=== PATIENT | male | born 1990 | race Caucasian/White ===

== ENCOUNTER 2019-11-09 04:57 | Observation (INO) | payer OTHER ==
[~2019-11-09] VITALS: Ht 178 cm; Wt 80.0 kg
[2019-11-09 05:04] VITALS: BP 146/78
[2019-11-09 05:59] LABS: ALBUMIN 5.5 gm/dl (3.1-4.5); BASO % 0.1 % (0.0-1.0); CREATININE 3.3 mg/dL (0.70-1.30); HEMATOCRIT 48.6 % (42.0-52.0); LYMPH # 1.6 10*3/uL (1.3-4.4); LYMPH % 10.7 % (27.0-41.0); MEAN CELL VOLUME 84.1 fl (80.0-94.0); MEAN CORPUSCULAR HGB 29.2 pg (27.0-31.0); MEAN CORPUSCULAR HGB CONC 34.8 g/dl (33.0-37.0); MONO # 1.3 10*3/uL (0.1-1.0); MONO % 8.6 % (3.0-9.0); NEUT # 11.7 10*3/uL (2.3-7.9); NEUT % 80.1 % (47.0-73.0); PLATELET COUNT AUTOMATED 287 10*3/uL (130-400); RED BLOOD COUNT 5.78 10*6/uL (4.50-5.90); RED CELL DISTRI WIDTH 12.3 % (0-14.5); TOTAL PROTEIN 8.7 gm/dL (6.4-8.2); WHITE BLOOD COUNT 14.6 10*3/uL (4.8-10.8)
[2019-11-09 06:01] LABS: POTASSIUM 4.4 mmol/L (3.5-5.1)
[2019-11-09 07:55] VITALS: BP 146/67
--- NOTE | 2019-11-09 07:55 | NUR ---
Time: 754 A 28 year old MALE admitted to under services of LIA WILLIS DO, Pt. arrived via ambulaTORY from ER. Chief complaint: NAUSEA, VOMITING. CORY REDDY
[2019-11-09 12:00] VITALS: BP 110/54
--- NOTE | 2019-11-09 13:00 | NUR ---
ZOFRAN GIVEN FOR C/O NAUSEA. WILL MONITOR.
--- NOTE | 2019-11-09 14:50 | NUR ---
PT STATES HE IS STILL HAVE NAUSEA AND ABDOMINAL PAIN. BATOOL NOTIFIED.
--- NOTE | 2019-11-09 14:59 | NUR ---
ONE TIME ORDER OF PHENERGAN ADMININSTERED AT THIS TIME. WILL MONITOR FOR EFFECTIVENESS.
--- NOTE | 2019-11-09 15:45 | NUR ---
PT IS ASLEEP. PHENERGAN CONSIDERED EFFECTIVE.
[2019-11-09 16:00] VITALS: BP 128/66
--- NOTE | 2019-11-09 19:19 | NUR ---
RECIEVED REPORT FROM PREVIOUS RN.
[2019-11-09 20:00] VITALS: BP 129/49
--- NOTE | 2019-11-09 20:01 | NUR ---
ASSUMED CARE OF PATIENT. PATIENT IS AAOX3 RESTING IN BED WITH EASY AND REGULAR RESPERS ON ROOM AIR. ASSESSMENT IS COMPLETE WITH NO C/O OR S/S OF DISTRESS NOTED AT THIS TIME. BED IS LOW, LOCKED, AND CALL LIGHT IS WITHIN REACH. WILL CONTNINUE TO MONITOR, SEE INTERVENTIONS.
[2019-11-09 22:13] LABS: BILIRUBIN Negative (Negative); BLOOD Negative (Negative); CLARITY Clear (Clear); COLOR Yellow (Yellow); GLUCOSE Negative (Negative); KETONE Trace (Negative); LEUKO ESTERASE Negative (Negative); NITRITE Negative (Negative); PH 5.5 (4.5-8.0); SPECIFIC GRAVITY >= 1.030 (1.001-1.030)
[2019-11-09 23:08] LABS: HYALINE CAST 31-40; WBC 0-2 wbc/hpf (0-5)
[2019-11-10 06:19] LABS: CHLORIDE 111 mmol/L (98-107); CREATININE 1.05 mg/dL (0.70-1.30); SODIUM 139 mmol/L (136-145)
[2019-11-10 06:39] LABS: BASO % 0.2 % (0.0-1.0); HEMATOCRIT 40.6 % (42.0-52.0); LYMPH # 1.7 10*3/uL (1.3-4.4); LYMPH % 14.3 % (27.0-41.0); MEAN CELL VOLUME 86.6 fl (80.0-94.0); MEAN CORPUSCULAR HGB 29.4 pg (27.0-31.0); MONO # 1.2 10*3/uL (0.1-1.0); MONO % 10.2 % (3.0-9.0); NEUT # 8.7 10*3/uL (2.3-7.9); NEUT % 74.9 % (47.0-73.0); RED BLOOD COUNT 4.69 10*6/uL (4.50-5.90); RED CELL DISTRI WIDTH 12.4 % (0-14.5); WHITE BLOOD COUNT 11.6 10*3/uL (4.8-10.8)
[2019-11-10 06:40] LABS: BUN 23 mg/dl (7-24); PLATELET COUNT AUTOMATED 188 10*3/uL (130-400)
[2019-11-10 08:00] VITALS: BP 97/58
--- NOTE | 2019-11-10 08:10 | NUR ---
PT RESTING IN BED. RESP-EASY AND REGULAR. NO C/O AT THIS TIME. CALL LIGHT IN REACH. SEE SHIFT ASSESSMENT.
--- NOTE | 2019-11-10 09:56 | NUR ---
PT C/O NAUSEA, MEDICATED WITH ZOFRAN IV PER PRN ORDER, SEE EMAR. CALL LIGHT IN REACH.
--- NOTE | 2019-11-10 10:46 | NUR ---
Credit Officer in to talk to patient. Patient states lives at HOME with ALONE. There are NO steps in the home. Physician: NONE Pharmacy: [facility] Home health services: NONE Patient's level of ADLs: INDEPENDENT Patient has working utilities: YES DME: NONE Follow-up physician's appointment after d/c: PREFERS TO FIND OWN AND MAKE APPOINTMENT Does patient want to access PORTAL?: NO Discharge plan PT IS IN THE AREA FROM OUT OF TOWN WORKING. STATES HE LIVES ALONE AND IS INDEPENDENT IN HIS CARE. DENIES HE WILL HAVE ANY NEEDS ON DISCHARGE. PLAN IS TO RETURN HOME WHEN MEDICALLY STABLE. STATES HE WILL HAVE A RIDE HOME. WILL CONTINUE TO FOLLOW.. MADELINE KWON
--- NOTE | 2019-11-10 10:50 | NUR ---
PT HAD SHOWER RESTING BACK IN BED. STATES MEDICATION HELPS. CALL LIGHT IN REACH.
--- NOTE | 2019-11-10 11:24 | NUR ---
DR. LIU WAS INTO SEE PT. C/O NAUSEA, MEDICATED WITH PHENERGAN PER STRAIGHT ORDER, SEE EMAR. CALL LIGHT IN REACH.
--- NOTE | 2019-11-10 12:20 | NUR ---
PT LYING IN BED WITH EYES CLOSED. RESP-EASY AND REGULAR. MEDICATION SEEMS TO BE EFFECTIVE. CALL LIGHT IN REACH.
[2019-11-10 16:00] VITALS: BP 122/70
--- NOTE | 2019-11-10 19:20 | NUR ---
REPORT OBTAINED FROM PREVIOUS RN. ASSUMED CARE OF PATIENT.
--- NOTE | 2019-11-10 19:45 | NUR ---
PATIENT RESTING IN BED. RESPERS EASY AND REGULAR ON ROOM AIR. ASSESSMENT IS COMPLETE. BED IS LOW, LOCKED, AND CALL LIGHT IS WITHIN REACH. NORMAL SALINE INFUSING PER ORDER. PATIENT INQUIRING ABOUT SHOWER. SHOWER ROOM SET UP. WALLET, WATCH, CAR KEYS, AND CELL PHONE PLACED IN WALL-A-CHERELLE WITH LOCK. WILL CONTINUE TO MONITOR, SEE INTERVENTIONS.
[2019-11-10 20:00] VITALS: BP 109/55; BP 178/98
--- NOTE | 2019-11-10 22:00 | NUR ---
PATIENT SHOWERED AND BED LINENS CHANGED.
--- NOTE | 2019-11-10 22:19 | NUR ---
IV started left forearm with #22 angiocath. The IV site was prepped with Chloraprep. Heparin lock attached. IV solution 0.9NS infusing at 100mL/hr Sterile dressing applied. Patient tolerated precedure well. Procedure performed according to [facility] policy & procedure. CHUY JARAMILLO
--- NOTE | 2019-11-10 23:23 | NUR ---
CHART CHECK COMPLETE.
[2019-11-11] VITALS: BP 126/68
--- NOTE | 2019-11-11 04:25 | NUR ---
SLEEPING. RESPERS EASY AND REGULAR. CALL LIGHT IS WITHIN REACH.
[2019-11-11 06:06] LABS: BASO % 0.4 % (0.0-1.0); EOS % 0.2 % (1.0-4.0); HEMATOCRIT 39.3 % (42.0-52.0); LYMPH # 1.9 10*3/uL (1.3-4.4); LYMPH % 20.9 % (27.0-41.0); MEAN CELL VOLUME 86.8 fl (80.0-94.0); MEAN CORPUSCULAR HGB 29.8 pg (27.0-31.0); MEAN CORPUSCULAR HGB CONC 34.4 g/dl (33.0-37.0); MEAN PLATELET VOLUME 9.8 fl (9.6-12.3); MONO # 1.1 10*3/uL (0.1-1.0); MONO % 11.5 % (3.0-9.0); NEUT # 6.1 10*3/uL (2.3-7.9); NEUT % 66.8 % (47.0-73.0); PLATELET COUNT AUTOMATED 173 10*3/uL (130-400); RED BLOOD COUNT 4.53 10*6/uL (4.50-5.90); RED CELL DISTRI WIDTH 12.2 % (0-14.5); WHITE BLOOD COUNT 9.1 10*3/uL (4.8-10.8)
[2019-11-11 06:16] LABS: ALBUMIN 3.8 gm/dl (3.1-4.5); BUN 21 mg/dl (7-24); CHLORIDE 110 mmol/L (98-107); POTASSIUM 3.8 mmol/L (3.5-5.1); SODIUM 140 mmol/L (136-145)
[2019-11-11 06:19] LABS: ALKALINE PHOSPHATASE 44 U/L (45-117); SGOT/AST 15 IU/L (3-35); SGPT/ALT 26 U/L (12-78); TOTAL PROTEIN 6.8 gm/dL (6.4-8.2)
[2019-11-11 08:00] VITALS: BP 133/75
--- NOTE | 2019-11-11 11:23 | NUR ---
PT CONTINUES TO STATE HE WILL RETURN HOME WHEN MEDICALLY STABLE. DECLINES ANY NEEDS. WILL CONTINUE TO FOLLOW.
[2019-11-11] MEDS ORDERED: ZOFRAN4 MG PO (11:38)
--- NOTE | 2019-11-11 14:38 | NUR ---
Discharge instructions reviewed with patient/family. Patient receptive and verbalizes understanding. Follow-up care arranged. Written instructions given to patient/family. NANCY EL
== END 2019-11-11 14:38 | disposition home or self-care (01) ==
LOC: ED 04:57 → 4E 06:52 → EDHOLD 06:52 → 4E 07:13
PROVIDERS: Emergency Medicine; Registered Nurse; Student in an Organized Health Care Education/Training Program; ADMIT Internal Medicine; ATTEND Internal Medicine
DX: N17.9 Acute kidney failure, unspecified (principal); E86.0 Dehydration; R11.2 Nausea with vomiting, unspecified; D72.829 Elevated white blood cell count, unspecified; E80.6 Other disorders of bilirubin metabolism